=== PATIENT | female | born 1980 | race African-American/Black ===

== ENCOUNTER 2017-05-08 17:05 | Emergency (ER) | payer OTHER ==
[2017-05-08 17:05] VITALS: BP 142/94
[2017-05-08] MEDS ORDERED: KETOROLAC 60 MG/2 ML VIAL. IM ONE (17:15)
[2017-05-08] MEDS ORDERED: TRAM-48 PO (17:56)
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
== END 2017-05-08 18:05 | disposition home or self-care (01) ==
LOC: ER 17:05
DX: S86.911A Strain of unspecified muscle(s) and tendon(s) at lower leg level, right leg, initial encounter (principal); V49.9XXA Car occupant (driver) (passenger) injured in unspecified traffic accident, initial encounter; Y93.89 Activity, other specified; Y99.8 Other external cause status; Y92.488 Other paved roadways as the place of occurrence of the external cause
CPT/HCPCS: 73564; 96372; 99284; J1885

== ENCOUNTER 2017-12-15 23:26 | Emergency (ER) | payer OTHER ==
[~2017-12-15] VITALS: Ht 170.2 cm; Wt 63.5 kg
[~2017-12-15 23:26] MED LIST: TRAM-48 PO
--- NOTE | 2017-12-15 23:32 | ED.ADGEN ---
Past History Past Medical History: No Pertinent History, Hypertension, Migraines Past Surgical History: Appendectomy, Other Alcohol Use: None Drug Use: None Adult General Chief Complaint Chief Complaint ".. I got this headache".. " I ve had migraines before.. but not this bad..." HPI HPI Patient is a 36 year old female who presents with above hx and complaints of frontal headache. Pt. has hx of prior migraine headaches. Pt. states never had migraine this bad. No hx of trauma. Recent travel from [place]. Denies specific ill contacts. Pt. denies any trauma. Denies hx of cancer, IV drug use or immunosuppression. Pt. follows at [facility] for care. Pt. headache has been present two days. Hx + photophobia and nausea. Pt. states she is currently on her period. Review of Systems Review of Systems Constitutional: Denies fever or chills [] Eyes: Denies change in visual acuity, redness, or eye pain [] HENT: Denies nasal congestion or sore throat [] Respiratory: Denies cough or shortness of breath [] Cardiovascular: No additional information not addressed in HPI [] GI: Denies abdominal pain, nausea, vomiting, bloody stools or diarrhea [] : Denies dysuria or hematuria [] Musculoskeletal: Denies back pain or joint pain [] Integument: Denies rash or skin lesions [] Neurologic: Hx of headache. Denies focal weakness or sensory changes [] Endocrine: Denies polyuria or polydipsia [] All other systems were reviewed and found to be within normal limits, except as documented in this note. Family History Family History Non-contributory Current Medications Current Medications Current Medications Medications (Trade) Dose Ordered Sig/Marleni Start Time Stop Time Status Last Admin Dose Admin Diphenhydramine HCl (Benadryl) 50 mg 1X ONCE 12/16/17 00:00 12/16/17 00:01 DC 12/16/17 00:26 50 MG Ketorolac Tromethamine (Toradol 30mg Vial) 30 mg 1X ONCE 12/16/17 01:30 12/16/17 01:31 DC 12/16/17 02:09 30 MG Lactated Ringer's 1,000 ml @ 1,000 mls/hr 1X ONCE 12/16/17 00:00 12/16/17 01:00 DC 12/16/17 00:33 1,000 MLS/HR Promethazine HCl (Phenergan Im) 25 mg 1X ONCE 12/16/17 00:15 12/16/17 00:16 DC 12/16/17 00:26 25 MG Sodium Chloride 50 ml @ As Directed STK-MED ONCE 12/16/17 00:06 12/16/17 00:07 DC Sumatriptan Succinate (Imitrex) 6 mg 1X ONCE 12/16/17 01:30 12/16/17 01:31 DC 12/16/17 02:09 6 MG Valproic Acid (Depacon) 500 mg STK-MED ONCE 12/16/17 00:06 12/16/17 00:07 DC Valproic Acid 500 mg/Sodium Chloride 55 ml @ 55 mls/hr 1X ONCE 12/16/17 00:00 12/16/17 01:00 DC 12/16/17 00:25 55 MLS/HR Allergies Allergies Allergies Coded Allergies Type Severity Reaction Last Updated Verified No Known Drug Allergies 12/16/17 No Physical Exam Physical Exam Constitutional: Well developed, well nourished, in moderately acute distress, non-toxic appearance. [] HENT: Normocephalic, atraumatic, bilateral external ears normal, oropharynx moist, no oral exudates, nose swollen turbinates. Eyes: PERRLA, EOMI, conjunctiva normal, no discharge. [] Neck: Normal range of motion, no tenderness, supple, no stridor. [] Cardiovascular:Heart rate regular rhythm, no murmur [] Lungs & Thorax: Bilateral breath sounds equal at apex on auscultation [] Abdomen: Bowel sounds normal, soft, no tenderness, no masses, no pulsatile masses. Old surgical scar. Skin: Warm, dry, no erythema, no rash. [] Back: No tenderness, no CVA tenderness. [] Extremities: No tenderness, no cyanosis, no clubbing, ROM intact, no edema. [] Neurologic: Alert and oriented X 3, normal motor function, normal sensory function, no focal deficits noted. []DTR + 2 patella and brachial . No drift. Civil Division Deputy Sheriff equal. Rt. hand dominate. Psychologic: Affect anxious, judgement normal, mood normal. [] Current Patient Data Vital Signs Vital Signs Date Time Temp Pulse Resp B/P (MAP) Pulse Ox O2 Delivery O2 Flow Rate FiO2 12/16/17 02:30 98.0 70 16 152/96 (114) 100 Room Air Lab Results Laboratory Tests Test 12/15/17 23:30 12/16/17 00:00 12/16/17 00:15 POC Urine HCG, Qualitative hcg negative (Negative) Urine Collection Type Unknown Urine Color [place] Urine Clarity Cloudy Urine pH 8.0 Urine Specific [place] 1.020 Urine Protein Neg (NEG-TRACE) Urine Glucose (UA) Neg mg/dL (NEG) Urine Ketones (Stick) Neg mg/dL (NEG) Urine Blood Large (NEG) Urine Nitrite Neg (NEG) Urine Bilirubin Neg (NEG) Urine Urobilinogen Dipstick 0.2 mg/dL (0.2 mg/dL) Urine Leukocyte Esterase Neg (NEG) White Blood Count 6.4 x10^3/uL (4.0-11.0) Red Blood Count 4.35 x10^6/uL (3.50-5.40) Hemoglobin 11.8 g/dL (12.0-15.5) L Hematocrit 36.0 % (36.0-47.0) Mean Corpuscular Volume 83 fL (79-100) Mean Corpuscular Hemoglobin 27 pg (25-35) Mean Corpuscular Hemoglobin Concent 33 g/dL (31-37) Red Cell Distribution Width 13.3 % (11.5-14.5) Platelet Count 228 x10^3/uL (140-400) Neutrophils (%) (Auto) 55 % (31-73) Lymphocytes (%) (Auto) 33 % (24-48) Monocytes (%) (Auto) 7 % (0-9) Eosinophils (%) (Auto) 4 % (0-3) H Basophils (%) (Auto) 1 % (0-3) Neutrophils # (Auto) 3.5 x10^3uL (1.8-7.7) Lymphocytes # (Auto) 2.1 x10^3/uL (1.0-4.8) Monocytes # (Auto) 0.5 x10^3/uL (0.0-1.1) Eosinophils # (Auto) 0.3 x10^3/uL (0.0-0.7) Basophils # (Auto) 0.1 x10^3/uL (0.0-0.2) Erythrocyte Sedimentation Rate 6 (0-25) Prothrombin Time 9.8 SEC (9.4-11.4) Prothrombin Time INR 1.0 (0.9-1.1) PTT 24 SEC (23-33) Sodium Level 142 mmol/L (136-145) Potassium Level 3.9 mmol/L (3.5-5.1) Chloride Level 105 mmol/L (98-107) Carbon Dioxide Level 27 mmol/L (21-32) Anion Gap 10 (6-14) Blood Urea Nitrogen 14 mg/dL (7-20) Creatinine 0.9 mg/dL (0.6-1.0) Estimated GFR (Cockcroft-Gault) 85.2 Glucose Level 88 mg/dL (70-99) Calcium Level 9.0 mg/dL (8.5-10.1) Magnesium Level 2.1 mg/dL (1.8-2.4) Total Bilirubin 0.3 mg/dL (0.2-1.0) Direct Bilirubin 0.1 mg/dL (0.0-0.2) Aspartate Amino Transferase (AST) 17 U/L (15-37) Alanine Aminotransferase (ALT) 17 U/L (14-59) Alkaline Phosphatase 62 U/L (46-116) Total Protein 7.5 g/dL (6.4-8.2) Albumin 3.8 g/dL (3.4-5.0) Amylase Level 65 U/L (25-115) EKG EKG [] Radiology/Procedures Radiology/Procedures I interpretation CT head shows no shift, mass, edema, bleed, or fracture. See formal report when available.[] Course & Med Decision Making Course & Med Decision Making Pertinent Labs and Imaging studies reviewed. (See chart for details) Pt. declines spinal tap at this time, exhibit UCAR capacity. Seems aware of risks for and not completing spinal tap. Pt. to take Imitrex at start of headache, but no more 100 mg in 24 hrs. Tylenol and Ibuprofen for pain. Marked pain take Vicoprofen. Zofran as needed for nausea and vomiting. Follow up with primary. Consider follow up with Neurology if recurrent migraines. Must follow up HTN. [] Final Impression Final Impression 1. Head ache[] 2. Accelerated Hypertension 3. Anemia Dragon Disclaimer Dragon Disclaimer This electronic medical record was generated, in whole or in part, using a voice recognition dictation system. ETHAN MCLAIN MD Dec 15, 2017 23:32
[2017-12-16] MEDS ORDERED: diphenhydrAMINE 50 MG/ML VIAL IVP ONE
[2017-12-16] MEDS ORDERED: VALPROATE SODIUM 500 MG in IV NORMAL SALINE 50ML 50 ML IV ONE ×2
[2017-12-16] MEDS ORDERED: IV RINGERS SOLUTION,LACTATED 1,000 ML IV ONE
[2017-12-16] MEDS ORDERED: IV NORMAL SALINE 50ML 50 ML ONE (00:06)
[2017-12-16] MEDS ORDERED: VALPROATE SODIUM 500 MG/5 ML VIAL IV ONE (00:06)
[2017-12-16] MEDS ORDERED: PROMETHAZINE IM 25 MG/ML VIAL IM ONE (00:15)
[2017-12-16 00:31] LABS: COLOR,URINE PINK
[2017-12-16 00:32] LABS: BILIRUBIN,URINE NEG (NEG); CLARITY,URINE CLOUDY; GLUCOSE,URINE NEG (NEG); NITRITE,URINE NEG (NEG); UROBILINOGEN,URINE 0.2 mg/dL (0.2 mg/dL)
--- NOTE | 2017-12-16 00:39 | RAD ---
CT head and maxillofacial without contrast 12/16/2017 CLINICAL INDICATION: For head trauma with severe headache and facial pain. COMPARISON: None. TECHNIQUE: Multiple CT images of the head and maxillofacial were obtained without contrast. *One or more of the following individualized dose reduction techniques were utilized for this examination: 1. Automated exposure control. 2. Adjustment of the mA and/or kV according to patient size. 3. Use of iterative reconstruction technique. FINDINGS: Head: No acute intracranial hemorrhage or extra-axial fluid collection. No midline shift. The basal cisterns are patent. The lopez-white matter interfaces are maintained. Maxillofacial: Mandible, pterygoid plates, maxillary sinus dutton, zygomatic arches, nasal bones, orbital rims, hard palate and nasal bones are patent without evidence of acute displaced fracture. Globes and orbits are unremarkable. The intraconal fat is preserved. IMPRESSION: Head: No acute intracranial hemorrhage. Maxillofacial: No evidence of acute maxillofacial fracture. Electronically signed by: Vishnu Olmos MD (12/16/2017 12:35 AM) [facility]
[2017-12-16 00:58] LABS: BASO # 0.1 x10^3/uL (0.0-0.2); BASO % 1 % (0-3); EOS # 0.3 x10^3/uL (0.0-0.7); EOS % 4 % (0-3); HEMOGLOBIN 11.8 g/dL (12.0-15.5); LYMPH # 2.1 x10^3/uL (1.0-4.8); LYMPH % 33 % (24-48); MEAN CORPUSCULAR HEMOGLOBIN 27 pg (25-35); MEAN CORPUSCULAR HGB CONC 33 g/dL (31-37); MEAN CORPUSCULAR VOLUME 83 fL (79-100); MONO # 0.5 x10^3/uL (0.0-1.1); MONO % 7 % (0-9); NEUT # 3.5 x10^3uL (1.8-7.7); NEUT % 55 % (31-73); PLATELET COUNT 228 x10^3/uL (140-400); RED BLOOD COUNT 4.35 x10^6/uL (3.50-5.40); RED CELL DISTRIBUTION WIDTH 13.3 % (11.5-14.5); WHITE BLOOD COUNT 6.4 x10^3/uL (4.0-11.0)
[2017-12-16 01:08] LABS: ALBUMIN 3.8 g/dL (3.4-5.0); CREATININE 0.9 mg/dL (0.6-1.0); DIRECT BILIRUBIN 0.1 mg/dL (0.0-0.2); GFR 85.2; MAGNESIUM 2.1 mg/dL (1.8-2.4); POTASSIUM 3.9 mmol/L (3.5-5.1); TOTAL BILIRUBIN 0.3 mg/dL (0.2-1.0); TOTAL PROTEIN 7.5 g/dL (6.4-8.2)
[2017-12-16] MEDS ORDERED: HYDR-79 PO (01:08)
[2017-12-16] MEDS ORDERED: SUMA100T3 PO (01:08)
[2017-12-16] MEDS ORDERED: ONDA8TAB12 PO (01:08)
[2017-12-16] MEDS ORDERED: SUMAtriptan SUCC 6 MG/0.5 ML VIAL SQ ONE (01:30)
[2017-12-16] MEDS ORDERED: KETOROLAC 30 MG/ML VIAL. IV ONE (01:30)
[2017-12-16 01:55] LABS: SEDIMENTATION RATE 6 (0-25)
[2017-12-16 02:30] VITALS: BP 152/96
== END 2017-12-16 02:45 | disposition home or self-care (01) ==
LOC: ER 23:26
DX: I10 Essential (primary) hypertension (principal); G43.909 Migraine, unspecified, not intractable, without status migrainosus; D64.9 Anemia, unspecified
CPT/HCPCS: 36415; 70450; 70486; 80048; 80076; 81003; 81025; 82150; 83735; 85025; 85610; 85651; 85730; 96365; 96372; 96375; 99285; J1200; J1885; J2550; J3030; J3490; J7120

== ENCOUNTER 2018-08-15 01:56 | Emergency (ER) | payer OTHER ==
[~2018-08-15] VITALS: Ht 170.2 cm; Wt 64.4 kg
[2018-08-15 01:56] VITALS: BP 145/95
[~2018-08-15 01:56] MED LIST changes: +HYDR-1179 PO; +ONDA8TAB12 PO; +SUMA100T3 PO
--- NOTE | 2018-08-15 02:28 | PHYS DOC ---
Past History Past Medical History: No Pertinent History, Hypertension, Migraines Past Surgical History: Appendectomy, Other Alcohol Use: None Drug Use: None Adult General Chief Complaint Chief Complaint: FACE PROBLEM HPI HPI Patient is a 37-year-old female who presents with right-sided facial pain and weakness. This has been going on for the past 5 days. Nothing seems to make it better or worse. 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 Patient denies any trauma. Denies any photophobia. No nausea or vomiting. No previous history of this. Not like any previous migraines.[] Review of Systems Review of Systems Constitutional: Denies fever or chills [] Eyes: Denies change in visual acuity, redness, or eye pain [] HENT: Denies nasal congestion or sore throat [] Respiratory: Denies cough or shortness of breath [] Cardiovascular: No chest pain or palpitations[] GI: Denies abdominal pain, nausea, vomiting, bloody stools or diarrhea [] : Denies dysuria or hematuria [] Musculoskeletal: Denies back pain or joint pain [] Integument: Denies rash or skin lesions [] Neurologic: See history of present illness[] Endocrine: Denies polyuria or polydipsia [] All other systems were reviewed and found to be within normal limits, except as documented in this note. Allergies Allergies Allergies Coded Allergies Type Severity Reaction Last Updated Verified No Known Drug Allergies 12/16/17 No Physical Exam Physical Exam Constitutional: Well developed, well nourished, no acute distress, non-toxic appearance. [] HENT: Normocephalic, atraumatic, bilateral external ears normal, oropharynx moist, no oral exudates, nose normal. [] Eyes: PERRLA, EOMI, conjunctiva normal, no discharge. [] Neck: Normal range of motion, no tenderness, supple, no stridor. [] Cardiovascular:Heart rate regular rhythm, no murmur [] Lungs & Thorax: Bilateral breath sounds clear to auscultation [] Abdomen: Bowel sounds normal, soft, no tenderness, no masses, no pulsatile masses. [] Skin: Warm, dry, no erythema, no rash. [] Back: No tenderness, no CVA tenderness. [] Extremities: No tenderness, no cyanosis, no clubbing, ROM intact, no edema. [] Neurologic: Alert and oriented X 3, decreased motor strength on the right side of the face, decreased sensation on the right side of the face as well.no focal deficits noted. She is able to wrinkle both sides of the for head equally, decreased smile on the right side[] Psychologic: Affect normal, judgement normal, mood normal. [] Current Patient Data Vital Signs Vital Signs Date Time Temp Pulse Resp B/P (MAP) Pulse Ox O2 Delivery O2 Flow Rate FiO2 08/15/18 01:56 97.6 82 16 100 Room Air EKG EKG EKG shows a sinus rhythm at 86 bpm, normal axis, QTC 434 ms, normal intervals, no ST elevations, interpreted by me at 0257[] Radiology/Procedures Radiology/Procedures []PROCEDURE: CT HEAD WO CONTRAST CT head without contrast COMPARISON: CT head December 16, 2017. PQRS statement: CT scans at this facility use dose reduction including either automated exposure control, iterative reconstructions, and /or weight based radiation dosing via mA and kV modification when appropriate to reduce radiation dose to as low as reasonably achievable. HISTORY: Right-sided facial numbness and headaches. FINDINGS: No intracranial hemorrhage, mass, hydrocephalus, extra-axial fluid collections or infarction. Orbits, mastoids, paranasal sinuses and bones are unremarkable. IMPRESSION: No acute intracranial CT abnormality. Course & Med Decision Making Course & Med Decision Making Pertinent Labs and Imaging studies reviewed. (See chart for details) ED course: Patient arrived, was placed in bed, and tolerated exam well. She was transported to and from [place] without any complications. After return of the imaging findings, these were discussed with the patient and family who voiced understanding. All questions were answered. Patient was discharged in improved condition. Medical decision making: There is no evidence of a significant electrolyte abnormality, concerned about the possibility of stroke given that the frontal region was able to fire however there is no evidence of a stroke on CT scan and symptoms of been going on for the past 5 days. This is most likely Jackson's palsy and will treated as such. Patient will need follow-up by her primary care physician and possibly neurology.[] Dragon Disclaimer Dragon Disclaimer This electronic medical record was generated, in whole or in part, using a voice recognition dictation system. Departure Departure: Impression: Primary Impression: Jackson's palsy Disposition: HOME, SELF-CARE Condition: IMPROVED Referrals: PCP,UNKNOWN (PCP) Patient Instructions: Jackson's Palsy Additional Instructions: Follow-up with your regular doctor in 2 days. If you do not have regular doctor list of local clinics will be provided for you. Return to the ER if worsening pain, weakness, or any other concerns Scripts Meloxicam (MELOXICAM) 7.5 Mg Tablet 7.5 MG PO DAILY for PAIN, #20 TAB Prov: SY EVANGELISTA DO 08/15/18 Valacyclovir Hcl (VALACYCLOVIR) 1,000 Mg Tablet 1 TAB PO TID for Jackson'S PALSY, #21 TAB Prov: SY EVANGELISTA DO 08/15/18 Prednisone (PREDNISONE) 50 Mg Tablet 1 TAB PO DAILY for INFLAMMATION, #7 TAB Prov: SY EVANGELISTA DO 08/15/18 SY EVANGELISTA DO Aug 15, 2018 02:28
--- NOTE | 2018-08-15 03:08 | EKG ---
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
--- NOTE | 2018-08-15 03:17 | RAD ---
CT head without contrast COMPARISON: CT head December 16, 2017. PQRS statement: CT scans at this facility use dose reduction including either automated exposure control, iterative reconstructions, and /or weight based radiation dosing via mA and kV modification when appropriate to reduce radiation dose to as low as reasonably achievable. HISTORY: Right-sided facial numbness and headaches. FINDINGS: No intracranial hemorrhage, mass, hydrocephalus, extra-axial fluid collections or infarction. Orbits, mastoids, paranasal sinuses and bones are unremarkable. IMPRESSION: No acute intracranial CT abnormality. Electronically signed by: Ronald Glez MD (08/15/2018 3:14 AM) [facility]
[2018-08-15 03:21] LABS: BASO # 0.1 x10^3/uL (0.0-0.2); BASO % 1 % (0-3); EOS # 0.3 x10^3/uL (0.0-0.7); EOS % 5 % (0-3); HEMATOCRIT 38.1 % (36.0-47.0); HEMOGLOBIN 12.3 g/dL (12.0-15.5); LYMPH # 2.3 x10^3/uL (1.0-4.8); LYMPH % 35 % (24-48); MEAN CORPUSCULAR HEMOGLOBIN 27 pg (25-35); MEAN CORPUSCULAR HGB CONC 32 g/dL (31-37); MEAN CORPUSCULAR VOLUME 84 fL (79-100); MONO # 0.6 x10^3/uL (0.0-1.1); MONO % 9 % (0-9); NEUT # 3.4 x10^3uL (1.8-7.7); NEUT % 51 % (31-73); PLATELET COUNT 263 x10^3/uL (140-400); RED BLOOD COUNT 4.51 x10^6/uL (3.50-5.40); WHITE BLOOD COUNT 6.7 x10^3/uL (4.0-11.0)
[2018-08-15 03:29] LABS: BILIRUBIN,URINE NEG (NEG); CLARITY,URINE CLOUDY; COLOR,URINE YELLOW; GLUCOSE,URINE NEG (NEG); NITRITE,URINE NEG (NEG); RBC,URINE 0 /HPF (0-2); UROBILINOGEN,URINE 1 mg/dL (0.2 mg/dL)
[2018-08-15 03:30] LABS: AMORPHOUS SEDIMENT,UR PRESENT /HPF; BACTERIA,URINE FEW /HPF (0-FEW); SQUAMOUS EPITHELIAL CELL,UR FEW /LPF; U PREG PATIENT NEGATIVE (NEG)
[2018-08-15 03:41] LABS: ALBUMIN 3.5 g/dL (3.4-5.0); ALBUMIN/GLOBULIN RATIO 0.9 (1.0-1.7); CALCIUM 8.7 mg/dL (8.5-10.1); CREATININE 0.9 mg/dL (0.6-1.0); GFR 84.8; POTASSIUM 3.8 mmol/L (3.5-5.1); TOTAL BILIRUBIN 0.4 mg/dL (0.2-1.0); TOTAL PROTEIN 7.5 g/dL (6.4-8.2)
[2018-08-15] MEDS ORDERED: PRED50TA PO (04:02)
[2018-08-15] MEDS ORDERED: VALA1000 PO (04:02)
[2018-08-15] MEDS ORDERED: MELO7.5T29 PO (04:03)
== END 2018-08-15 04:11 | disposition home or self-care (01) ==
LOC: ER 01:56
DX: G51.0 Bell's palsy (principal); I10 Essential (primary) hypertension; G43.909 Migraine, unspecified, not intractable, without status migrainosus
CPT/HCPCS: 36415; 70450; 80053; 81001; 81025; 85025; 85610; 87086; 93005; 99285

== ENCOUNTER 2020-12-15 21:29 | Emergency (ER) | payer OTHER ==
[~2020-12-15] VITALS: Ht 170.2 cm; Wt 71.9 kg
[~2020-12-15 21:29] MED LIST changes: +MELO7.5T29 PO; +PRED50TA PO; +VALA10008 PO
--- NOTE | 2020-12-15 22:56 | PHYS DOC ---
Past History Past Medical History: No Pertinent History, Hypertension, Migraines Past Surgical History: Appendectomy, Other Alcohol Use: None Drug Use: None General Adult EDM: Chief Complaint: HEADACHE HPI: HPI: ". I get migraines.. usually the Imitrex works....I ve use my max for today.. 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 Patient states her typical presentation with photophobia, myalgia, nausea, malaise, and sensitivity to sounds. Patient recently has traveled from [place] to visit significant other here. Patient denies any recent trauma. No specific ill contacts. Up-to-date with vaccdanni penny. Has had 2 Covid vaccinations-Moderna. In August/ October. No history of fever or chills. No history of recent travel outside this dates or recent other deployments. Patient while in [place] area follows at [facility].. Patient does have past medical history of hypertension, migraines, appendectomy,. 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 Review of Systems: Review of Systems: Constitutional: Denies fever or chills Eyes: Denies change in visual acuity HENT: Denies nasal congestion or sore throat Respiratory: Denies cough or shortness of breath Cardiovascular: Denies chest pain or edema GI: Complains of nausea,. Denies vomiting, bloody stools or diarrhea : Denies dysuria Musculoskeletal: Denies back pain or joint pain Integument: Denies rash Neurologic: Complains of headache,. Denies focal weakness or sensory changes Endocrine: Denies polyuria or polydipsia Lymphatic: Denies swollen glands Psychiatric: Denies depression or anxiety Family History: Family History: Noncontributory to presentation Current Medications: Current Meds: See nursing for home meds Allergies: Allergies: Allergies Coded Allergies Type Severity Reaction Last Updated Verified No Known Drug Allergies 12/15/20 No Physical Exam: PE: Constitutional: Well developed, well nourished, no acute distress, non-toxic appearance. [] HENT: Normocephalic, atraumatic, bilateral external ears normal, oropharynx moist, no oral exudates, nose normal. [] Eyes: PERRLA, EOMI, conjunctiva normal, no discharge. [] Neck: Normal range of motion, no tenderness, supple, no stridor. [] Cardiovascular:Heart rate regular rhythm, no murmur [] Lungs & Thorax: Bilateral breath sounds clear to auscultation [] Abdomen: Bowel sounds normal, soft, no tenderness, no masses, no pulsatile masses. [] Old surgery scar. Skin: Warm, dry, no erythema, no rash. [] Back: No tenderness, no CVA tenderness. [] Extremities: No tenderness, no cyanosis, no clubbing, ROM intact, no edema. [] Neurologic: Alert and oriented X 3, normal motor function, normal sensory function, no focal deficits noted. [] DTRs +2 patella and brachial. No drift. Amatory without problems. Hydrometer Finisher equal. Right-hand dominant. Fundi benign. Psychologic: Affect anxious, judgement normal, mood normal. [] EKG: EKG: My interpretation EKG shows a sinus rhythm at 2320 hrs. No findings acute STEMI of contralateral changes. Essentially normal EKG [] Radiology/Procedures: Radiology/Procedures: [] Heart Score: C/O Chest Pain: N/A Risk Factors: Risk Factors: DM, Current or recent (<one month) smoker, HTN, HLP, family history of CAD, obesity. Risk Scores: Score 0 - 3: 2.5% MACE over next 6 weeks - Discharge Home Score 4 - 6: 20.3% MACE over next 6 weeks - Admit for Clinical Observation Score 7 - 10: 72.7% MACE over next 6 weeks - Early Invasive Strategies Course & Med Decision Making: Course & Med Decision Making Pertinent Labs and Imaging studies reviewed. (See chart for details) Patient received bolus of LR 1000 cc. Toradol, Compazine, Benadryl, and a small increments of fentanyl 50 mics had almost complete resolution of her migraine symptoms. Requesting discharge. Patient continue her normal migraine meds Imitrex. Avoid overuse. Follow-up primary care. Return if any concerns. Impression: 1. Migraine headache [] Michael Disclaimer: Michael Disclaimer: This electronic medical record was generated, in whole or in part, using a voice recognition dictation system. Departure Departure: Referrals: PCP,UNKNOWN (PCP) Scripts Ondansetron Hcl (ZOFRAN) 4 Mg Tablet 8 MG PO QIDPRN PRN for NAUSEA/VOMITING, #30 TAB Prov: ETHAN MCLAIN MD 12/16/20 Michael Disclaimer This chart was dictated in whole or in part using Voice Recognition software in a busy, high-work load, and often noisy Emergency Department environment. It may contain unintended and wholly unrecognized errors or omissions. ETHAN MCLAIN MD Dec 15, 2020 22:56
[2020-12-15] MEDS ORDERED: diphenhydrAMINE 50 MG/ML VIAL IV ONE (23:30)
[2020-12-15] MEDS ORDERED: IV RINGERS SOLUTION,LACTATED 1,000 ML IV ONE (23:30)
[2020-12-15] MEDS ORDERED: PROCHLORPERAZINE 10 MG/2 ML VIAL. IV ONE (23:30)
[2020-12-15] MEDS ORDERED: KETOROLAC 30 MG/ML VIAL. IVP ONE (23:30)
[2020-12-15 23:48] LABS: BASO # 0.1 x10^3/uL (0.0-0.2); BASO % 1 % (0-3); EOS # 0.4 x10^3/uL (0.0-0.7); EOS % 5 % (0-3); HEMATOCRIT 38.9 % (36.0-47.0); HEMOGLOBIN 12.7 g/dL (12.0-15.5); LYMPH # 2.7 x10^3/uL (1.0-4.8); LYMPH % 38 % (24-48); MEAN CORPUSCULAR HEMOGLOBIN 28 pg (25-35); MEAN CORPUSCULAR HGB CONC 33 g/dL (31-37); MEAN CORPUSCULAR VOLUME 85 fL (79-100); MONO # 0.7 x10^3/uL (0.0-1.1); MONO % 9 % (0-9); NEUT # 3.3 x10^3uL (1.8-7.7); NEUT % 46 % (31-73); PLATELET COUNT 296 x10^3/uL (140-400); RED BLOOD COUNT 4.56 x10^6/uL (3.50-5.40); RED CELL DISTRIBUTION WIDTH 13.1 % (11.5-14.5); WHITE BLOOD COUNT 7.1 x10^3/uL (4.0-11.0)
[2020-12-15 23:59] LABS: CALCIUM 8.2 mg/dL (8.5-10.1); CREATININE 0.8 mg/dL (0.6-1.0); GFR 96.1; POTASSIUM 4.2 mmol/L (3.5-5.1)
[2020-12-16] MEDS ORDERED: ONDA4TAB7 PO (00:38)
[2020-12-16 02:01] VITALS: BP 105/60
--- NOTE | 2020-12-16 02:25 | EKG ---
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
== END 2020-12-16 02:01 | disposition home or self-care (01) ==
LOC: ER 21:29
DX: G43.909 Migraine, unspecified, not intractable, without status migrainosus (principal)
CPT/HCPCS: 36415; 80048; 84484; 85025; 86140; 93005; 96361; 96374; 96375; 99284; J0780; J1200; J1885; J3010; J7120